=== PATIENT | female | born 1985 | race Caucasian/White ===

== ENCOUNTER → 2018-01-22 13:45 | Outpatient (CLI) | payer OTHER, MEDICAID, SELFPAY ==
[2018-01-22 15:27] LABS: HCG Quantitative /Beta subunit 12182 mIU/mL
== END ==
PROVIDERS: PCP Family Medicine; Visit Provider Family Medicine
DX: N92.6 Irregular menstruation, unspecified (principal)
CPT/HCPCS: 36415; 84702

== ENCOUNTER 2018-03-15 13:14 | Emergency (ER) | payer OTHER, MEDICAID, SELFPAY ==
[2018-03-15 13:44] VITALS: BP 139/100; PULSE 101; RESP 16; TEMP 36.7; O2SAT 99; BMI 41.1
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
[2018-03-15 17:13] VITALS: BP 137/78; PULSE 101; RESP 16; O2SAT 100
[2018-03-15 18:00] VITALS: BP 107/77; PULSE 95; RESP 16; O2SAT 100
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
[2018-03-15 18:20] VITALS: BP 139/100; PULSE 95; RESP 16; TEMP 36.7; O2SAT 100; BMI 41.1
[2018-03-15] MEDS: IBUPROFEN 400 MG TABLET PO (18:22)
[2018-03-15 19:10] LABS: Bacteria Urine Few (2-10); Mucus Urine 2+ (Negative); RBC Urine 5-10/HPF (0-5/HPF); Squamous Epithelial Cell Urine 5-10 /HPF; WBC Urine 1-5/HPF (0-5/HPF)
[2018-03-15 19:11] LABS: Culture Indicated Urine Cult Not Indicated
[2018-03-15 19:21] VITALS: BP 117/72; PULSE 76; RESP 16; O2SAT 100
[2018-03-15] MEDS: CYCLOBENZAPRINE 10 MG PREPACK 1 BOTTLE MISC (19:38)
== END 2018-03-15 19:43 | disposition home or self-care (01) ==
PROVIDERS: Emergency Provider Nurse Practitioner Family; Family Provider Family Medicine; PCP Family Medicine
DX: S50.01XA Contusion of right elbow, initial encounter (principal); M54.5 Low back pain; V49.59XA Passenger injured in collision with other motor vehicles in traffic accident, initial encounter
CPT/HCPCS: 72131; 73080; 81003; 81015; 81025; 99283; 99284

== ENCOUNTER → 2020-03-16 11:54 | Outpatient (CLI) | payer OTHER, MEDICAID, SELFPAY ==
--- NOTE | 2020-03-16 11:56 | DI.RAD.S_ITS ---
PROCEDURE: XR ANKLE RT MIN 3V INDICATIONS: right ankle pain TECHNIQUE: 3 views of the ankle were acquired. COMPARISON: None. FINDINGS: Bones: No fractures or dislocations. Slight widening of lateral ankle mortise is noted. No suspicious bony lesions. Soft tissues: Lateral ankle soft tissue swelling is seen. No tibiotalar joint effusion. Achilles tendon appears normal. IMPRESSION: No gross acute ankle fracture or dislocation. Lateral ankle soft tissue swelling with slight widening of lateral ankle mortise concerning for lateral ankle ligament sprain/partial-thickness tear. Dictated by: Ezra Ayala M.D. on 03/16/2020 at 12:52 Approved by: Ezra Ayala M.D. on 03/16/2020 at 12:53
--- NOTE | 2020-03-16 11:56 | DI.RAD.S_ITS ---
PROCEDURE: XR FOOT RT MIN 3V INDICATIONS: right ankle pain TECHNIQUE: 3 views of the foot were acquired. COMPARISON: None. FINDINGS: Bones: No fractures or dislocations. No suspicious bony lesions. Soft tissues: No tibiotalar joint effusion. Achilles tendon appears normal. IMPRESSION: No acute right foot fracture or dislocation. Dictated by: Ezra Ayala M.D. on 03/16/2020 at 12:48 Approved by: Ezra Ayala M.D. on 03/16/2020 at 12:52
== END ==
PROVIDERS: Family Provider Family Medicine; PCP Family Medicine; Referring Provider Physician Assistant; Visit Provider Physician Assistant
DX: M25.571 Pain in right ankle and joints of right foot (principal); M79.89 Other specified soft tissue disorders
CPT/HCPCS: 73610; 73630

== ENCOUNTER → 2020-12-07 15:01 | Outpatient (CLI) | payer OTHER, MEDICAID, SELFPAY ==
[2020-12-07] MEDS: COVID-19 VACC #1, MRNA(MOD) 100 MCG/0.5 ML VIAL IM (15:06)
== END ==
PROVIDERS: PCP Family Medicine; Visit Provider Internal Medicine
DX: Z23 Encounter for immunization (principal)
CPT/HCPCS: 0011A; 91301

== ENCOUNTER → 2021-01-05 13:57 | Outpatient (CLI) | payer OTHER, MEDICAID, SELFPAY ==
[2021-01-05] MEDS: COVID-19 VACC #2, MRNA(MOD) 100 MCG/0.5 ML VIAL IM (14:01)
== END ==
PROVIDERS: PCP Family Medicine; Visit Provider Internal Medicine
DX: Z23 Encounter for immunization (principal)
CPT/HCPCS: 0012A; 91301

== ENCOUNTER → 2021-03-13 09:02 | Outpatient (CLI) | payer OTHER, MEDICAID, SELFPAY ==
[2021-03-13 10:03] LABS: Add Manual Diff / Slide Review NO; Basophils Absolute Auto 0 /uL (0-100); Basophils Percent Auto 0.6 % (0-2); Eosinophils Absolute Auto 100 /uL (0-450); Eosinophils Percent Auto 1.3 % (2-4); Hematocrit 41.5 % (36-46); Lymphocytes Absolute Auto 2100 /uL (1100-4500); Lymphocytes Percent Auto 30.3 % (25-40); Mean Corpuscular HGB Conc 33.7 % (30-36); Mean Corpuscular Hemoglobin 31.1 PG (26-34); Mean Corpuscular Volume 92.4 fL (80-100); Monocytes Absolute Auto 300 /uL (0-900); Monocytes Percent Auto 4.3 % (3-14); Neutrophils Absolute Auto 4500 /uL (1500-7000); Neutrophils Percent Auto 63.5 % (50-75); Platelet Count 276 X10^3/uL (150-400); Red Blood Cell Count 4.49 X10^6/uL (4.0-5.2); Red Cell Distribution Width 13.4 % (11.6-14.8)
[2021-03-13 10:25] LABS: BUN Creatinine Ratio 7.6 (6-22); Blood Urea Nitrogen 5 mg/dL (7-17); Calcium 9.6 mg/dL (8.4-10.2); Carbon Dioxide 21 mmol/L (22-32); Chloride 110 mmol/L (98-107); Estimated Glomerular Filt Rate > 60.0 mL/min (>60); Glucose 123 mg/dL (70-100); HEMOLYSIS < 15 (0-50); Potassium 4.2 mmol/L (3.4-5.1); Sodium 139 mmol/L (137-145)
[2021-03-13 10:31] LABS: Prolactin 7.9 ng/mL (3.0-18.6)
[2021-03-13 10:45] LABS: TSH w/ Reflex to FT4 0.17 uIU/mL (0.47-4.68)
[2021-03-13 13:15] LABS: Free T4, Direct Thyroxine 1.16 ng/dL (0.78-2.19)
== END ==
PROVIDERS: PCP Family Medicine; Referring Provider Physician Assistant; Visit Provider Physician Assistant
DX: N64.3 Galactorrhea not associated with childbirth (principal)
CPT/HCPCS: 36415; 80048; 81025; 84146; 84439; 84443; 85025

== ENCOUNTER → 2021-04-27 13:20 | Outpatient (CLI) | payer OTHER, MEDICAID, SELFPAY ==
--- NOTE | 2021-04-27 13:21 | DI.US.S_ITS ---
ULTRASOUND OF LEFT BREAST: 04/27/2021 CLINICAL: Left breast discharge and pain. Comparison is made to exam dated: 04/27/2021 [facility]. Color flow and real-time ultrasound of the left breast were performed. Elizalde scale images of the real-time examination were reviewed. No significant abnormalities were seen sonographically in the left breast. IMPRESSION: NEGATIVE There is no sonographic evidence of malignancy. There is no abnormality seen in the left breast to correspond with the area of clinical concern and non-bloody discharge from the nipple in the sub-areolar depth which likely represent physiological discharge, however, recommend clinical follow up for persistent or worsening symptoms, or development of any clinically suspicious findings. Recommend initiating routine screening mammograms at age 42. Findings and recommendations were conveyed to the patient during today's evaluation. This exam was interpreted at Station ID: [id number]. Electronically Signed By: Boby Hightower M.D. aty/:04/27/2021 14:54:17 Entry: - 04/30/2021 06:03:06 Ultrasound BI-RADS: 1 Negative
--- NOTE | 2021-04-27 13:21 | DI.MG.S_ITS ---
BILATERAL DIGITAL DIAGNOSTIC MAMMOGRAM 3D/2D: 04/27/2021 CLINICAL: Bilateral breast pain. Baseline exam. No prior exams were available for comparison. The tissue of both breasts is heterogeneously dense. This may lower the sensitivity of mammography. No significant masses, calcifications, or other findings are seen in either breast. IMPRESSION: INCOMPLETE: NEEDS ADDITIONAL IMAGING EVALUATION There is no abnormality seen in either breast to correspond with the diffuse pain, however, clinical followup is recommended. There is no abnormality seen in either breast to correspond with the non-bloody discharge from the nipple, however, bilateral ultrasound is recommended for further evaluation and is scheduled to immediately follow this examination. This exam was interpreted at Station ID: [id number]. NOTE: For mammograms, a report in lay terms will be sent to the patient. Approximately 15% of breast malignancies will not be visualized mammographically. In the management of a palpable breast mass, a negative mammogram must not discourage biopsy of a clinically suspicious lesion. Electronically Signed By: Boby Hightower M.D. aty/:04/27/2021 14:49:56 ACR BI-RADS Category 0: Incomplete [id number]
--- NOTE | 2021-04-27 13:21 | DI.US.S_ITS ---
ULTRASOUND OF RIGHT BREAST: 04/27/2021 CLINICAL: Right breast discharge and pain. Comparison is made to exam dated: 04/27/2021 [facility]. Real-time ultrasound of the right breast was performed. Elizalde scale images of the real-time examination were reviewed. No significant abnormalities were seen sonographically in the right breast. IMPRESSION: NEGATIVE There is no sonographic evidence of malignancy. There is no abnormality seen in the right breast to correspond with the area of clinical concern and non-bloody discharge from the nipple in the sub-areolar depth which likely represent physiological discharge, however, recommend clinical follow up for persistent or worsening symptoms, or development of any clinically suspicious findings. Recommend initiating routine screening mammograms at age 42. Findings and recommendations were conveyed to the patient during today's evaluation. This exam was interpreted at Station ID: [id number]. Electronically Signed By: Boby Hightower M.D. aty/:04/27/2021 14:52:50 letter sent: Clinical Evaluation Ultrasound BI-RADS: 1 Negative
== END ==
PROVIDERS: PCP Family Medicine; Referring Provider Family Medicine; Visit Provider Family Medicine
DX: N64.4 Mastodynia (principal)
CPT/HCPCS: 76642; 77066; G0279

== ENCOUNTER 2021-08-05 15:47 | Emergency (ER) | payer OTHER, MEDICAID, SELFPAY ==
[2021-08-05 16:36] LABS: COVID19 -Nasal RAPID Negative (Negative)
[2021-08-05 16:37] VITALS: PULSE 91; RESP 18; TEMP 36.7; O2SAT 100
--- NOTE | 2021-08-05 17:38 | ED.RECABL ---
HPI - Recheck/Abnormal Lab/Rx General Chief Complaint: Recheck/Abnormal Lab/Rx Stated Complaint: Wants COVID Test, No Symptoms Time Seen by Provider: 08/05/21 17:37 Source: patient Mode of arrival: Ambulatory History of Present Illness HPI narrative: Patient presents to the ED for COVID testing. She states she has been having fever and body aches over the last couple of days she took a home test kit which initially tested negative the 2nd test she believed it to be positive and is here for confirmation. She is concerned about her child and her child being exposed to COVID and she is wanting to confirm it. She is also reporting that she has been using her albuterol inhaler more frequently than than normal over the last few weeks and as result is needing a refill on her albuterol. She currently denies any shortness of breath cough congestion rhinorrhea or fever. She denies any body aches. Related Data Previous Rx's Medication Instructions Recorded epinephrine 0.3 mg/0.3 mL 0.3 mg (0.3 mL) IM Q5-15M PRN #2 01/07/20 injection, auto-injector each albuterol sulfate 90 mcg/actuation See Rx Instructions .ROUTE 04/03/21 aerosol inhaler (ProAir HFA) .COMPLEX #8.5 g meloxicam 7.5 mg tablet 7.5 mg PO DAILY #30 tab 06/27/21 albuterol sulfate 90 mcg/actuation 1 inh INHALATION QID PRN #8.5 g 08/05/21 aerosol inhaler Allergies Allergy/AdvReac Type Severity Reaction Status Date / Time Fish Containing Products Allergy Severe Anaphylaxis Verified 03/13/21 08:32 [FISH CONTAINING PRODUCTS] peanut [PEANUT] Allergy Severe Anaphylaxis Verified 03/13/21 08:32 venom-wasp Allergy Severe Anaphylaxis Verified 03/13/21 08:32 Review of Systems Review of Systems ROS Unobtainable: All systems reviewed & are unremarkable except as noted in HPI and below Constitutional Constitutional: Denies chills, Denies fatigue, Reports fever(s), Denies frequent falls, Denies lethargy and Denies weakness Eyes Eyes: Denies change in vision, Denies eye discharge, Denies irritation and Denies loss of vision ENT Ears, Nose, Mouth, and Throat: Denies change in voice, Denies dizziness, Denies neck pain, Denies sore throat and Denies throat swelling Cardiovascular Cardiovascular: Denies chest pain, Denies irregular heart rhythm, Denies lightheadedness, Denies palpitations, Denies dyspnea, Denies dyspnea on exertion and Denies orthopnea Respiratory Respiratory: Denies cough, Denies dyspnea, Denies dyspnea on exertion and Denies wheezing Gastrointestinal Gastrointestinal: Denies abdominal pain, Denies change in bowel habits, Denies diarrhea, Denies nausea and Denies vomiting Genitourinary Genitourinary: Denies hematuria, Denies flank pain, Denies urinary incontinence and Denies urinary urgency Musculoskeletal Musculoskeletal: Denies back pain, Denies muscle weakness, Denies neck pain, Denies numbness and Denies tingling Integumentary/Breasts Skin/Breast: Denies pruritus, Denies erythema, Denies rash and Denies wounds Neurologic Neurologic: Denies behavioral changes, Denies confusion, Denies dizziness, Denies frequent falls, Denies loss of vision, Denies numbness, Denies tingling and Denies weakness Psychiatric Psychiatric: Denies anxiety, Denies behavioral changes, Denies confusion, Denies depression, Denies homicidal ideation and Denies suicidal ideation Endocrine Endocrine: Denies fatigue, Denies flushing and Denies palpitations Hematologic/Lymphatic Hematologic/Lymphatic: Denies easy bruising Allergic/Immunologic Allergic/Immunologic: Denies urticaria, Denies throat swelling and Denies wheezing Patient History Medical History Ankle injury Anxiety Vaginal delivery Surgical History History of elective (2014) Social History Smoking Status: Current every day smoker Smoking Status: Current every day smoker Substance Use Type: does not use Exam Initial Vital Signs Initial Vital Signs: Vital Signs Temperature 98.1 F 08/05/21 16:37 Pulse Rate 91 H 08/05/21 16:37 Respiratory Rate 18 08/05/21 16:37 Pulse Oximetry 100 08/05/21 16:37 Const General: cooperative, healthy appearing and comfortable Nutritional Appearance: average body habitus Orientation: Orientation [facility] Head: normal to inspection, normocephalic and atraumatic Ears: hearing grossly normal bilaterally Nose: external nose normal Face and sinus: normal facial exam Mouth: oral mucosae normal Teeth and gingiva: dentition normal Throat: posterior oropharynx normal Eyes Pupils: PERRL Resp Effort & Inspection: normal respiratory effort Auscultation: clear to auscultation bilaterally Percussion: percussion normal Course Course Course Narrative: Patient was found to be COVID negative and will be discharged home. Orders Ordered: ED Orders 08/05/21 16:11 COVID19 -Nasal swab/Pre-Proc Stat Vital Signs Vital signs: Vital Signs - 8 hr 08/05/21 16:37 Temperature 98.1 F Pulse Rate 91 H Respiratory Rate 18 Pulse Oximetry 100 MDM - Recheck/Abnormal Lab/Rx Differential Diagnosis Differential diagnosis: Likely encounter for medication refill Lab Data Labs: Lab Results 08/05/21 Range/Units 16:11 SARS-CoV-2 (PCR) Negative (Negative) MDM Narrative Medical decision making narrative: Patient was COVID negative and will get a refill on her albuterol inhaler and be discharged home. Discharge Plan Departure Patient Disposition: Home Clinical Impression: Encounter for medication refill, COVID-19 ruled out by laboratory testing Prescriptions: New albuterol sulfate 90 mcg/actuation HFA aerosol inhaler 1 inh inhalation QID PRN (Reason: shortness of breath or wheezing) Qty: 8.5 0RF No Action epinephrine 0.3 mg/0.3 mL auto-injector 0.3 mg IM Q5-15M PRN (Reason: anaphylaxis) Qty: 2 1RF Rx Instructions: do not exceed 3 doses per episode albuterol sulfate [ProAir HFA] 90 mcg/actuation HFA aerosol inhaler See Rx Instructions .ROUTE .COMPLEX Qty: 8.5 0RF Dose Instruction: INHALE 2 PUFFS BY MOUTH FOUR TIMES DAILY NEEDED FOR SHORTNESS OF BREATH OR WHEEZING Rx Instructions: INHALE 2 PUFFS BY MOUTH FOUR TIMES DAILY NEEDED FOR SHORTNESS OF BREATH OR WHEEZING meloxicam 7.5 mg tablet 7.5 mg PO DAILY Qty: 30 2RF Referrals: Lisa Aguilar MD [Primary Care Provider] -
--- NOTE | 2021-08-05 17:39 | PC.NURSE ---
believes they were exposed to covid.
--- NOTE | 2021-08-05 17:57 | ED.RECABL ---
HPI - Recheck/Abnormal Lab/Rx General Chief Complaint: Recheck/Abnormal Lab/Rx Stated Complaint: Wants COVID Test, No Symptoms Time Seen by Provider: 08/05/21 17:37 Source: patient Mode of arrival: Ambulatory Related Data Previous Rx's Medication Instructions Recorded epinephrine 0.3 mg/0.3 mL 0.3 mg (0.3 mL) IM Q5-15M PRN #2 01/07/20 injection, auto-injector each meloxicam 7.5 mg tablet 7.5 mg PO DAILY #30 tab 06/27/21 albuterol sulfate 90 mcg/actuation 1 inh INHALATION QID PRN #8.5 g 08/05/21 aerosol inhaler albuterol sulfate 90 mcg/actuation See Rx Instructions .ROUTE 08/06/21 aerosol inhaler .COMPLEX #8.5 g Allergies Allergy/AdvReac Type Severity Reaction Status Date / Time Fish Containing Products Allergy Severe Anaphylaxis Verified 03/13/21 08:32 [FISH CONTAINING PRODUCTS] peanut [PEANUT] Allergy Severe Anaphylaxis Verified 03/13/21 08:32 venom-wasp Allergy Severe Anaphylaxis Verified 03/13/21 08:32 Review of Systems Constitutional Constitutional: Denies frequent falls and Denies weakness Eyes Eyes: Denies loss of vision ENT Ears, Nose, Mouth, and Throat: Denies dizziness Musculoskeletal Musculoskeletal: Denies numbness and Denies tingling Neurologic Neurologic: Denies behavioral changes, Denies confusion, Denies dizziness, Denies frequent falls, Denies loss of vision, Denies numbness, Denies tingling and Denies weakness Psychiatric Psychiatric: Denies behavioral changes and Denies confusion Patient History Medical History Ankle injury Anxiety Vaginal delivery Surgical History History of elective (2014) Social History Smoking Status: Current every day smoker Smoking Status: Current every day smoker Substance Use Type: does not use Exam Initial Vital Signs Initial Vital Signs: Vital Signs Temperature 98.1 F 08/05/21 16:37 Pulse Rate 91 H 08/05/21 16:37 Respiratory Rate 18 08/05/21 16:37 Pulse Oximetry 100 08/05/21 16:37 Course Orders Ordered: Discontinued Medications Albuterol (Albuterol Hfa Prepack) 1 box MISC SEEINSTR ONE Stop: 08/05/21 17:59 Last Admin: 08/05/21 18:10 Dose: 1 box Documented by: HUGO Vital Signs Vital signs: Vital Signs - 8 hr 08/05/21 16:37 Temperature 98.1 F Pulse Rate 91 H Respiratory Rate 18 Pulse Oximetry 100 MDM - Recheck/Abnormal Lab/Rx Lab Data Labs: Lab Results 08/05/21 Range/Units 16:11 SARS-CoV-2 (PCR) Negative (Negative) Discharge Plan Departure Patient Disposition: Home Clinical Impression: Encounter for medication refill, COVID-19 ruled out by laboratory testing Prescriptions: New albuterol sulfate 90 mcg/actuation HFA aerosol inhaler 1 inh inhalation QID PRN (Reason: shortness of breath or wheezing) Qty: 8.5 0RF No Action epinephrine 0.3 mg/0.3 mL auto-injector 0.3 mg IM Q5-15M PRN (Reason: anaphylaxis) Qty: 2 1RF Rx Instructions: do not exceed 3 doses per episode meloxicam 7.5 mg tablet 7.5 mg PO DAILY Qty: 30 2RF albuterol sulfate 90 mcg/actuation HFA aerosol inhaler See Rx Instructions .ROUTE .COMPLEX Qty: 8.5 11RF Dose Instruction: INHALE 2 PUFFS BY MOUTH FOUR TIMES DAILY NEEDED FOR SHORTNESS OF BREATH OR WHEEZING Rx Instructions: INHALE 2 PUFFS BY MOUTH FOUR TIMES DAILY NEEDED FOR SHORTNESS OF BREATH OR WHEEZING Referrals: Lisa Aguilar MD [Primary Care Provider] -
[2021-08-05] MEDS: ALBUTEROL HFA PREPACK 1 BOX MISC (18:10)
== END 2021-08-05 18:11 | disposition home or self-care (01) ==
PROVIDERS: Emergency Medicine; Emergency Provider Physician Assistant; PCP Family Medicine
DX: R50.9 Fever, unspecified (principal); F17.200 Nicotine dependence, unspecified, uncomplicated; Z76.0 Encounter for issue of repeat prescription; Z20.822 Contact with and (suspected) exposure to COVID-19
CPT/HCPCS: 87635; 99281; C9803

== ENCOUNTER 2022-11-11 13:05 | Inpatient (IN) | payer OTHER, MEDICAID, SELFPAY ==
[2022-11-11] VITALS (16 sets, daily range): BP systolic 117–139; BP diastolic 68–87; PULSE 91–110; RESP 16–21; TEMP 36.2–37.3; O2SAT 95–100; BMI 38.1
--- NOTE | 2022-11-11 | PATH_ITS ---
[facility] Accession Number: [id number] No. of containers..01 Tissue . 01 Material submitted: . uterus - UTERUS AND BILATERAL FALLOPIAN TUBES . 01 Diagnosis: Uterus and Bilateral Fallopian Tubes, Procedure Not Specified (Weight 184 grams): Endocervix/lower uterine segment with no significant histomorphologic abnormality. Basalis endometrium; negative for glandular hyperplasia, cytologic atypia, or malignancy. Myometrium with an intramural leiomyoma (46 mm); negative for cytologic atypia or malignancy. Uterine serosa with no significant histomorphologic abnormality. Longer fallopian tube, complete cross-sections, with multiple benign paratubal cysts (up to 2 mm in greatest dimension); negative for atypia or malignancy. [place] fallopian tube, complete cross-sections, with benign paratubal cysts (up to 4 mm in greatest dimension); negative for significant atypia. [facility] 11/13/2022 1603 Local . 01 Electronically signed: . Danielle Jalloh MD, Pathologist NPI- [id number] . 01 Gross description: . The specimen is received in formalin labeled with the patient's name, , and uterus and bilateral fallopian tubes, and consists of an intact uterus (184 grams, 8.0 cm SI, 6.5 cm ML, and 5.8 cm AP) with two attached unoriented fimbriated fallopian tubes (6.1 x 0.7 cm and 5.9 x 0.8 cm, respectively) with no cervix or additional adnexa. Due to the lack of cervix and additional adnexa, orientation cannot be determined. The serosa is staton and smooth with no evidence adhesion or hemorrhage identified. The cervical margin is inked blue. A short segment of possible endocervical canal is identified measuring 1.2 cm in length and has staton herringbone mucosa. The endometrial cavity is grossly distorted measuring approximately 1.9 cm from cornu to cornu and 4.3 cm in length. The cavity is filled with semi-solid hemorrhagic material, and the endometrium is red, velvety and averages 0.1 cm thick with no lesions identified. The myometrium is staton and trabecular measuring up to 1.4 cm in maximum thickness, and is significant for a single well-circumscribed white whorled nodule located submucosally and is distorting the endometrial cavity measuring up to 4.6 cm in greatest dimension with no hemorrhage or necrosis identified. No additional lesions are identified. . The longer fallopian tube has congested smooth serosa with multiple cystic structures measuring up to 0.2 cm in greatest dimension filled with cloudy serous fluid. Sectioning reveals an unremarkable stellate lumen. The shorter fallopian tube has congested smooth serosa with multiple cystic structures measuring up to 0.4 cm in greatest dimension filled with cloudy serous fluid. Sectioning reveals an unremarkable stellate lumen. . [employer]iologic Technology Instructor sections are submitted as follows: A1-A2: Lower uterine segment with possible endocervical canal. A3-A4: Full thickness sections with nodule. A5: Radiologic Technology Instructor nodule. A6: Serosa. A7: Longer fallopian tube to include one-half of bisected fimbriae and cross-sections. A8: [place] fallopian tube to include one-half of bisected fimbriae and cross-sections. ([id number]) /MRV 11/12/2022 1837 Local . 01 Pathologist provided ICD-10: N92.1, D25.9 . 01 CPT . 728023 Specimen Comment: A courtesy copy of this report has been sent to [phone] Performed at: 01 [facility] [address] [place] [address] [address], [place], [place] [id number] MD Ravi Barraza MD Phone: [phone]
[2022-11-11] MEDS: LACTATED RINGERS 1,000 ML 100 ML IV ×3 (07:08→21:27)
--- NOTE | 2022-11-11 07:26 | PM.PREOP ---
Pre-operative Note COVID-19 Criteria for continued procedure: Non-surgical alternatives not available or appropriate per current SOC Interval Note History & Physical reviewed/Exam performed by Physician: Yes Changes to H&P: No H&P completed within 30 days and has changed as indicated here:: 10/28/22
[2022-11-11 07:43] LABS: COVID19 -Nasal RAPID Negative (Negative)
[2022-11-11] MEDS: CEFAZOLIN 2 GM/100 ML PREMIX 100 ML IV (07:48)
--- NOTE | 2022-11-11 08:39 | SUR.OPER ---
Lithotomy on padded OR bed. Rena Lara Pad Positioner under torso. Head on pillow, arms padded and tucked at sides. Legs secured in padded yellow fins stirrups.
[2022-11-11] MEDS: BUPIVACAINE 0.5% (PF) 30 ML VIAL INJ (09:55)
[2022-11-11] MEDS: EPINEPHrine 1 MG/ML 0.15 MG INJ (09:58)
[2022-11-11] MEDS: ROPIVACAINE 0.2% PF 2 MG/ML 20ML AMP 20 ML INJ (10:35)
--- NOTE | 2022-11-11 10:43 | P.OP_ITS ---
Operative Date/Time/Diagnoses Date of procedure: 11/11/22 Time of procedure: 10:43 Pre-op diagnosis: Menorrhagia Fibroid uterus Post-op diagnosis: same Procedure & Clinicians Procedure: Procedures Operation Date: 11/11/22 07:45 Actual Procedure Side Surgeon p Laparoscopic converted to open Total Abdominal Hysterectomy w. bilateral salpingectomy and IUD removal Kamini Conrad MD Indications: Menorrhagia Fibroid uterus Surgeon: Kamini Conrad Stock Preparation Supervisor: Aj Prieto Anesthesia Type: General and Local Operative Notes Findings: 10 wk size anteverted uterus Normal ovaries and tubes Closure Type: primary Specimen(s): left tube, right tube and uterus Applied: catheter (To continuous drainage) Estimated blood loss (mL): 200 Procedure in detail: The patient was taken to the operating room where she was placed in the dorsal supine position. After adequate general endotracheal anesthesia was achieved, she was placed in the dorsal lithotomy position, and prepped and draped in the usual sterile fashion. A time-out was performed. A bivalve speculum was placed into the vagina and the anterior lip of the cervix was grasped with a single- tooth tenaculum. The cervical os was sequentially dilated until the Zumi uterine manipulator could pass easily into the endometrial cavity. The single- tooth tenaculum was removed from the anterior lip of the cervix. The bivalve speculum was removed from the vagina. Attention was then turned to the abdomen where 6 cc of 0.25% Marcaine with epinephrine were injected in the umbilical fold. A 5 mm incision was made. The long Veress needle was placed into the peritoneal cavity, and its placement confirmed by aspiration and drop test. Upon insufflation the pressure was high, the Veress needle was removed and reinserted. Could not get proper placement. A decision was made to try direct visualization with a long trocar. Still unable to get into the peritoneal cavity due to stretchy peritoneum. A cutdown was done and the skin incision was extended. The fascia was grasped and incised. The peritoneum was still so deep that we were not safely able to grasp it and get into the peritoneal cavity. After 45 minutes of trying, a decision was made to proceed with an open procedure. The fascia was closed on the umbilical incision with 0 Vicryl in a running fashion. A Pfannenstiel skin incision was then made 2 fingerbreadths above the pubic symphysis and carried through to the underlying layer of fascia. The fascia was nicked in the midline and the incision extended bilaterally with the Correa scissors. The superior aspect of the fascial incision was grasped with the Cotrez clamps, elevated, and the underlying rectus muscles dissected off sharply and bluntly. Attention was then turned to the inferior aspect of this incision which in a similar fashion was grasped with the Cortez clamps, elevated, and the underlying rectus muscles dissected off sharply and bluntly. The rectus muscles were in the midline. The peritoneum was identified grasped between 2 hemostats and entered sharply with the Metzenbaum scissors. This incision was extended superiorly and inferiorly with good visualization of the bladder. A large Monroe was placed into the incision, and the bowel packed away with moist lap sponges. The uterus was grasped with a 4 tooth tenaculum. The right tube was grasped with a [place]. Using the LigaSure, the mesosalpinx on the right side was cauterized and cut all the way to the cornua of the uterus. The utero-ovarian vessels were then cauterized and cut with the LigaSure. The broad ligament and round ligament were cauterized and cut. The bladder flap was created sharply using the Metzenbaum scissors and the bladder taken down off the lower uterine segment and cervix. The uterine arteries on the right side were extensively cauterized with the LigaSure. All of this was repeated on the patient's left side. The Zumi uterine manipulator was removed from the uterus. A sponge stick was placed into the vagina. The uterus was amputated using the Bovie. The endocervical canal was extensively cauterized with the Bovie. There was some bleeding noted from the angles. [id number] sutures with 0 Vicryl were placed for hemostasis. These were tagged with hemostats. The remainder of the cervical stump was closed with [id number] sutures with 0 Vicryl. Hemostasis was achieved. The pelvis was copiously irrigated with warm normal saline. There was no bleeding noted. The peritoneum was closed over the cervix using 2-0 Vicryl with simple interrupted sutures. The Monroe and lap sponges were removed from the abdomen and pelvis. There was no bleeding noted. 20 cc of ropivacaine were placed over the pelvic pedicles. The peritoneum was reapproximated using 2-0 Vicryl in a running fashion. The fascia was reapproximated using 0 Vicryl in a running fashion. The subcutaneous layer was irrigated with warm normal saline. Six simple interrupted sutures with 3-0 Vicryl were placed to reapproximate the subcutaneous layer. The skin was closed with 4-0 Monocryl in a subcuticular fashion. Steri-Strips and an Aquacel dressing were placed. The umbilical incision was closed in the s ubcutaneous layer with 2 simple interrupted sutures with 3-0 Vicryl. The skin was closed with 4-0 Monocryl in a subcuticular fashion. Dermabond was also placed over the incision. An Allevyn dressing was placed. The moistened sponge stick was removed from the vagina. Sponge, lap, and instrument counts were correct x2. The patient tolerated the procedure well, and was taken to PACU in stable condition. Complications: none Post-operative Condition: stable Disposition: PACU Plan for aftercare: To Acute Care after recovery
[2022-11-11] MEDS: ONDANSETRON 4 MG/2 ML INJ IV ×2 (11:25→17:21)
[2022-11-11] MEDS: fentaNYL 100 MCG/2 ML INJ IV ×2 (11:28→11:37)
--- NOTE | 2022-11-11 11:55 | SUR.PHASEI ---
Patient still nauseated after once PACU dose of zofran. Dr. Vidal at bedside and gave verbal order for 10mg IV reglan once. Kellen Fitch, RN
[2022-11-11] MEDS: METOCLOPRAMIDE 10 MG/2 ML INJ IV ×2 (12:06→21:26)
[2022-11-11] MEDS: OXYCODONE IR 5 MG TABLET PO ×4 (12:06→23:38)
[2022-11-11] MEDS: MORPHINE 2 MG/ML INJ IV ×2 (13:31→17:22)
[2022-11-11] MEDS: KETOROLAC 30 MG/ML VIAL IV ×2 (16:37→22:25)
[2022-11-11] MEDS: ACETAMINOPHEN 325 MG TABLET 650 MG PO ×2 (18:30→23:37)
--- NOTE | 2022-11-11 19:34 | PC.NURSE ---
Pt arrived from PACU at approximately 1230. She is A&OX4, VSS,afebrile RA. Abdominal dressing is c/d/i. She reports pain best controlled with prn morphpine from 01/04 down to 11/04. She denies any appetite and is given zofran prn for nausea. LR running at 100ml/hr She is able to get up and sit in the chair for a couple hours this evening. Guard at bedside evaluating patient this evening. Report given to oncoming RN to d/c nunez catheter tomorrow at 6 am
[2022-11-11] MEDS: DOCUSATE 100 MG CAPSULE 200 MG PO (20:08)
[2022-11-12 04:00] VITALS: BP 126/81; PULSE 96; RESP 18; TEMP 37.1; O2SAT 98
[2022-11-12] MEDS: KETOROLAC 30 MG/ML VIAL IV (04:05)
[2022-11-12] MEDS: MORPHINE 2 MG/ML INJ IV (04:11)
[2022-11-12] MEDS: ACETAMINOPHEN 325 MG TABLET 650 MG PO ×4 (06:22→23:52)
[2022-11-12 06:29] LABS: Add Manual Diff / Slide Review NO; Basophils Absolute Auto 0 /uL (0-100); Basophils Percent Auto 0.2 % (0-2); Eosinophils Absolute Auto 0 /uL (0-450); Eosinophils Percent Auto 0.1 % (2-4); Hematocrit 31.1 % (36-46); Hemoglobin 10.7 g/dL (12.0-16.0); Lymphocytes Absolute Auto 2100 /uL (1100-4500); Lymphocytes Percent Auto 18.8 % (25-40); Mean Corpuscular HGB Conc 34.4 % (30-36); Mean Corpuscular Hemoglobin 31.3 PG (26-34); Mean Corpuscular Volume 91.1 fL (80-100); Monocytes Absolute Auto 800 /uL (0-900); Monocytes Percent Auto 7.2 % (3-14); Neutrophils Absolute Auto 8200 /uL (1500-7000); Neutrophils Percent Auto 73.7 % (50-75); Platelet Count 223 X10^3/uL (150-400); Red Blood Cell Count 3.41 X10^6/uL (4.0-5.2); Red Cell Distribution Width 13.1 % (11.6-14.8); White Blood Cell Count 11.2 X10^3/uL (4.5-11.0)
[2022-11-12] MEDS: OXYCODONE IR 5 MG TABLET PO ×2 (07:42→23:52)
[2022-11-12] MEDS: LACTATED RINGERS 1,000 ML 100 ML IV (07:44)
[2022-11-12 07:49] VITALS: BP 116/77; PULSE 94; RESP 18; TEMP 36.4; O2SAT 99
[2022-11-12] MEDS: ONDANSETRON 4 MG/2 ML INJ IV ×2 (07:57→17:49)
[2022-11-12] MEDS: OXYCODONE IR 10 MG TABLET PO ×3 (11:22→20:02)
[2022-11-12 12:00] VITALS: BP 128/78; PULSE 77; RESP 18; TEMP 36.8; O2SAT 97
--- NOTE | 2022-11-12 12:24 | CM.DANOTE ---
Discharge Planning/Care Management CM Discharge Assessment Start: 11/12/22 12:19 Freq: Status: Active Protocol: Document 11/12/22 12:19 DENNIS (Rec: 11/12/22 12:24 DENNIS [id number]) Discharge Planning Assessment Assigned Territory Sales Professional REINA Cavanaugh DPYASMEEN/Assigned Designee Name Roberto Ellington S.O. Contact Information [phone] Advance Directives? No History Provided By Patient,Medical Record Prior Living Arrangements Apartment/Condo Household Members spouse Type of transporation used prior to Drives own vehicle admit Independent with ADL's Yes Is patient alert and oriented? Yes Barriers to Discharge No Comment Patient is a 37 yo female, POD1 from lap converted to open total abd hysterectomy w surekha salpingectomy and IUD removal Patient lives w/two children and S.O. in [place], [place] and active at baseline and plans to return home w/support from her family upon discharge, close outpatient follow up recommended CM team will plan to follow closely in the case any discharge needs or concerns are identified JW Discharge Plan Home Referrals Initiated None needed
[2022-11-12 16:00] VITALS: BP 117/76; PULSE 88; RESP 16; TEMP 36.3; O2SAT 97
--- NOTE | 2022-11-12 17:31 | P.PN_ITS ---
Subjective Subjective Date Patient Seen: 11/12/22 Time Patient Seen: 07:50 Interval history: Postop day # 1 status post attempted laparoscopic supracervical hysterectomy, converted to open with supracervical hysterectomy and removal of both tubes. Catheter out this morning at 6:30 a.m.. Patient has had some nausea. She had some clear liquids last night. Pain is fairly well controlled. Exam Vital Signs (past 8 hours): - 11/12/22 12:00 11/12/22 16:00 Temperature 98.3 F 97.3 F L Pulse Rate 77 88 Respiratory Rate 18 16 Blood Pressure 128/78 117/76 Pulse Oximetry 97 97 Oxygen Flow Rate 0 0 Oxygen Delivery Method Room Air Oxygen Flow Rate 0 Narrative Exam Narrative: Generally: Patient is sitting up in bed, no acute distress Lungs: Clear to auscultation bilaterally Cardiovascular: Regular rate and rhythm Abdomen: Soft, appropriately tender. Incisions: Clean dry and intact. Extremities: Trace edema Objective Labs 11/12/22 06:11 Labs: Laboratory Results - last 24 hr 11/12/22 06:11 WBC 11.2 H RBC 3.41 L Hgb 10.7 L Hct 31.1 L MCV 91.1 MCH 31.3 MCHC 34.4 RDW 13.1 Plt Count 223 Neut % (Auto) 73.7 Lymph % (Auto) 18.8 L [place] % (Auto) 7.2 Eos % (Auto) 0.1 L Baso % (Auto) 0.2 Neut # (Auto) 8200 H Lymph # (Auto) 2100 [place] # (Auto) 800 Eos # (Auto) 0 Baso # (Auto) 0 PFSH Medical History (Updated 10/27/22 @ 20:51 by Kamini Conrad MD) Ankle injury Anxiety Asthma DUB (dysfunctional uterine bleeding) Vaginal delivery Surgical History (Updated 09/21/22 @ 18:18 by Trinidad Bahena) Anesthesia History of elective (2014) History of tonsillectomy Social History household members: spouse Smoking Status: Former smoker alcohol intake: never Assessment & Plan Post-op Postoperative Procedures: Procedures Operation Date: 11/11/22 07:45 Actual Procedure Side Surgeon p Laparoscopic converted to open Total Abdominal Hysterectomy w. bilateral salpingectomy and IUD removal Kamini Conrad MD Not NELSON, but Abdominal Supracervical hysterectomy, bilat salpingectomy with IUD removal Postoperative day: 1 Postoperative status: doing well Postoperative status narrative: Some nausea Postoperative plan: routine post-op care Time Spent With Patient Time with patient: less than 15 minutes Quality VTE Deep Vein Thrombosis/Pulmonary Embolism Present on Admission: No
[2022-11-12 19:55] VITALS: BP 135/77; PULSE 86; RESP 18; TEMP 36.7; O2SAT 99
[2022-11-12] MEDS: DOCUSATE 100 MG CAPSULE 200 MG PO (20:02)
[2022-11-12 23:59] VITALS: BP 124/65; PULSE 82; RESP 18; TEMP 36.8; O2SAT 97
[2022-11-13 05:00] VITALS: BP 110/78; PULSE 80; RESP 16; TEMP 36.6; O2SAT 98
[2022-11-13 05:20] VITALS: TEMP 36.6
[2022-11-13] MEDS: ACETAMINOPHEN 325 MG TABLET 650 MG PO ×2 (05:20→11:55)
[2022-11-13] MEDS: OXYCODONE IR 5 MG TABLET PO (05:20)
[2022-11-13] MEDS: OXYCODONE IR 10 MG TABLET PO ×2 (06:07→11:02)
[2022-11-13] MEDS: ONDANSETRON 4 MG/2 ML INJ IV (06:09)
[2022-11-13 08:05] VITALS: BP 125/76; PULSE 81; RESP 16; TEMP 36.3; O2SAT 99
[2022-11-13] MEDS: IBUPROFEN 600 MG TABLET PO (10:44)
--- NOTE | 2022-11-13 12:11 | PC.NURSE ---
IV removed on previous shift. Discussed s/s of infection, s/s of stroke. Discussed taking narcotics- take with food, drink plenty of fluids, no alcohol or driving, and taking a stool softner. Answered questions regarding oxycodone and zofran. Went over follow up appt and wound care. No further questions. Patient has all belongings and was wheeled out to private vehicle to via w/c by RN.
== END 2022-11-13 12:22 | disposition home or self-care (01) | DRG 513 ==
LOC: OR 11-12 07:02 → AC 11-12 07:02
PROVIDERS: Admitting Provider Obstetrics & Gynecology; PCP Family Medicine; Referring Provider Obstetrics & Gynecology; Visit Provider Obstetrics & Gynecology
PROC: 0UT94ZL Resection of Uterus, Supracervical, Percutaneous Endoscopic Approach (ICD-10-PCS; principal; 2022-11-11 07:45)
DX: N92.0 Excessive and frequent menstruation with regular cycle (principal); D25.9 Leiomyoma of uterus, unspecified; Z20.822 Contact with and (suspected) exposure to COVID-19
CPT/HCPCS: 36415; 58150; 85025; 87635; C9803; J0171; J0330; J0690; J1100; J1170; J1885; J2270; J2405; J2704; J2765; J2795; J3010

== ENCOUNTER → 2024-02-16 11:33 | Outpatient (CLI) | payer OTHER, MEDICAID, SELFPAY ==
[2022-11-11 12:35] VITALS: BMI 38.1
--- NOTE | 2024-02-16 11:35 | DI.RAD.S_ITS ---
PROCEDURE: XR CHEST 2V INDICATIONS: Cough, asthma TECHNIQUE: 2 views of the chest were acquired. COMPARISON: None. FINDINGS: Surgical changes and devices: None. Lungs and pleura: Lungs are clear. No pleural effusions or pneumothorax. Mediastinum: Mediastinal contours are normal. Heart size is normal. Bones and chest wall: No suspicious bony abnormalities. Soft tissues appear unremarkable. IMPRESSION: No acute pulmonary process. Dictated by: Kaylin Lim M.D. on 02/16/2024 at 13:04 Approved by: Kaylin Lim M.D. on 02/16/2024 at 13:05
== END ==
PROVIDERS: PCP Family Medicine; Referring Provider Physician Assistant Surgical; Visit Provider Physician Assistant Surgical
DX: R05.3 Chronic cough (principal)
CPT/HCPCS: 71046